=== PATIENT | female | born 1965 | race Caucasian/White ===

== ENCOUNTER 2020-08-26 02:55 | Outpatient (CLI) | payer OTHER, SELFPAY ==
--- NOTE | 2020-08-26 | DI.MAMMO_ITS ---
EXAM: MG MAMMO SCREENING CLINICAL HISTORY: SCREENING, Z12.31 TECHNIQUE: Bilateral full field digital CC and MLO mammographic images were obtained with 3D tomosyn thesis and utilizing computer aided detection (CAD). COMPARISON: Available for comparison. FINDINGS: Masses/Architectural Distortion: None seen. Microcalcifications: No suspicious pleomorphic-type are seen. Skin Thickening/Nipple Retraction: None. IMPRESSION: 1. No significant interval change with no specific features of malignancy noted. 2. Unless there is more urgent need, screening mammography is recommended, as per [employer] guidelines. BI-RADS Category 2 - Benign Findings Breast Density - Category C - Heterogeneously dense Breast density category C or D implies that the patient has dense breast tissue. Dense breast tissue is very common and is not abnormal but dense breast tissue can make it harder to find cancer on a ma mmogram. Also, dense breast tissue may increase their breast cancer risk. This information about the result of the mammogram report was provided to the patient to raise their awareness. Use this report when you speak with the patient about their risks for breast cancer, which includes their family hist ory. At that time, you may recommend for more screening tests (Ultrasound or MRI) as they might be us eful based on their risk. A negative radiographic report should not delay biopsy if a dominant or clinically suspicious mass is present. Up to ten percent of cancers are not identified on mammography. A negative report may reinforce clinical impression. Adenosis and dense breasts may obscure an underlying neoplasm. False positive reports average 6 to 10%. Patient will receive a letter notifying them of these results.
== END 2020-08-26 03:15 ==
PROVIDERS: PCP Family Medicine; Visit Provider Family Medicine
DX: Z12.31 Encounter for screening mammogram for malignant neoplasm of breast (principal)
CPT/HCPCS: 77063; 77067

== ENCOUNTER 2023-02-23 19:06 | Outpatient (CLI) | payer OTHER, SELFPAY ==
--- NOTE | 2023-02-23 | DI.RAD_ITS ---
Exam(s) XR TIB/FIB LT EXAM: XR TIB/FIB LT CLINICAL HISTORY: localized swelling on lower leg. TECHNIQUE: 2D digital imaging was performed. COMPARISON: No exams were available for comparison FINDINGS: Two views-AP and lateral. No evidence of fracture.. No radiopaque foreign body. Bone density normal. No osseous lesions. There is some symmetric abnormal streaking in the subcutaneous fat layer over the lateral aspect of t he calf. There is no radiopaque foreign body. No gas in the soft tissues. IMPRESSION: Soft tissues findings as above. No osseous findings. DATA REPOSITORY: RADIATION DOSE DELIVERED:
--- NOTE | 2023-02-23 19:50 | DI.VRAD_ITS ---
PROCEDURE INFORMATION: Exam: XR Left Tibia and Fibula Exam date and time: 02/23/2023 7:30 PM Age: 57 years old Clinical indication: Pain; Left; Patient HX: Localized swelling on lower leg TECHNIQUE: Imaging protocol: Radiologic exam of the left tibia and fibula. Views: 2 views. COMPARISON: No relevant prior studies available. FINDINGS: Bones/joints: Frontal and lateral views of the left foreleg and ankle reveal no acute fracture or dislocation Soft tissues: No cutaneous marker was placed at the site of the palpable abnormality. There is apparent soft tissue swelling along the lateral aspect of the mid foreleg. Within the limits of the exam, no radiopaque foreign body or obvious soft tissue gas is demonstrated. IMPRESSION: No acute fracture or dislocation seen in the left foreleg. Dictated and Authenticated by: Tyrell Mason MD. Ordering:ZARI ZHANG MD
== END 2023-02-23 19:26 ==
LOC: DI 19:08
PROVIDERS: PCP Family Medicine; Visit Provider Nurse Practitioner Family
DX: R22.40 Localized swelling, mass and lump, unspecified lower limb (principal)
CPT/HCPCS: 73590

== ENCOUNTER 2024-05-22 01:28 | Outpatient (CLI) | payer OTHER, SELFPAY ==
--- NOTE | 2024-05-22 | DI.MAMMO_ITS ---
Exam(s) MAMMO SCREENING EXAM: MAMMO SCREENING CLINICAL HISTORY: SCREENING FOR BREAST CA,Z07/25 TECHNIQUE: Mammograms were interpreted according to the usual protocol including computer analysis w [employer] CAD system, tomosynthesis and C-view imaging. COMPARISON: 2017 and 2020 FINDINGS: The breasts are composed of heterogeneously dense fibroglandular densities, Breast Density category C . No suspicious masses or suspicious microcalcifications are seen. No skin thickening or abnormal axillary lymph nodes are seen. There has been no significant change from prior exams. IMPRESSION: BI-RADS Category 1, Negative mammogram. Yearly screening mammography is recommended. Breast Density Category C, heterogeneously Dense. The mammogram demonstrates the patient's breast tissue is dense. Dense breast tissue is very common a nd is not abnormal but dense breast tissue can make it harder to find cancer on a mammogram. Also, de nse breast tissue may increase breast cancer risk. This information about the result of the mammogram report was provided to the patient to raise their awareness. Use this report when you speak with the patient about their risks for breast cancer, which includes their family history. At that time, you may recommend additional screening tests (Ultrasound or MRI) as they might be useful based on their r isk. A negative radiographic report should not delay biopsy if a dominant or clinically suspicious mass is present. Up to ten percent of cancers are not identified on mammography. A negative report may reinforce clinical impression. Adenosis and dense breasts may obscure an underlying neoplasm. False positive reports average 6 to 10%.
== END 2024-05-22 01:48 ==
LOC: DI 01:28
PROVIDERS: PCP Family Medicine; Visit Provider Family Medicine
DX: Z12.31 Encounter for screening mammogram for malignant neoplasm of breast (principal)
CPT/HCPCS: 77063; 77067

== ENCOUNTER 2024-10-23 07:43 | Day surgery (SDC) | payer OTHER, SELFPAY ==
[2024-10-23 08:30] VITALS: BP 136/73; PULSE 76; RESP 20; TEMP 36.5; O2SAT 98
[2024-10-23 09:29] VITALS: BMI 28.4
--- NOTE | 2024-10-23 09:29 | W.ANESPRE ---
General Info Date of Service Date Performed: 10/23/24 Height: 5 ft 6 in Weight: 80 kg Body Mass Index (BMI): 28.4 Surgical Procedure: Operation Date: 10/23/24 10:05 Proposed Procedure Side Surgeon p Colonoscopy Timothy Chacon MD Meds Allergies and Home Medications Allergies Allergy/AdvReac Type Severity Reaction Status Date / Time Penicillins Allergy Intermediate rash Verified 10/23/24 09:10 codeine AdvReac Intermediate crying and Verified 10/23/24 09:10 sleepy loratadine (From Claritin) AdvReac Intermediate mental Verified 10/23/24 09:10 changes & hyper Home Medication ?Medication ?Instructions ?Recorded bisacodyl 5 mg tablet,delayed 5 mg PO ONCE colonscopy bowel prep 10/12/24 release (Dulcolax (bisacodyl)) #4 tabs polyethylene glycol 3350 17 238 g PO ONCE colonoscopy prep 10/12/24 gram/dose oral powder #238 grams Current Visit Medications: Current Medications Generic Name Dose Route Start Last Admin Trade Name Michaelq PRN Reason Stop Dose Admin Ringer's Solution 1,000 mls @ 80 mls/hr 10/23/24 06:00 IV 10/23/24 23:59 INFUSION MARISA IV Miscellaneous Supplies 1 each 10/23/24 06:00 Iv Access IV 10/23/24 23:59 DIRECTED MARISA Sodium Chloride 0 ml 10/23/24 06:00 Normal Saline Flush 10 Ml Syr IV 10/23/24 23:59 PRN PRN Sodium Chloride 0 ml 10/23/24 06:00 Normal Saline 10 Ml Vial IJ 10/23/24 23:59 DIRECTED PRN Sterile Water 0 ml 10/23/24 06:00 Water,Injection,Sterile 10 Ml Vial IJ 10/23/24 23:59 DIRECTED PRN PFSH Medical History Medical History Hx of fracture of nose No pertinent past medical history Negative colorectal cancer screening using DNA-based stool test (~2020) Surgical History Surgical History History of mandibular surgery 2020 Jaw realignment Hx of hand surgery No pertinent past surgical history Tobacco Smoking/Tobacco Use Status: Never Passive smoking exposure: No Alcohol Alcohol Intake: current Alcohol intake frequency: a few times a week Alcohol type: beer Substance Use Substance use: Never Substance use type: does not use Vital Signs and Lab Results Vital Signs Most Recent Vital Signs in EMR: Most Recent Vital Signs Temp Pulse Resp BP Pulse Ox 36.5 C 76 20 136/73 98 10/23/24 08:30 10/23/24 08:30 10/23/24 08:30 10/23/24 08:30 10/23/24 08:30 Lab Results Blood Type / Crossmatch: No Data to Display Complete Blood Count: No Data to Display Complete Metabolic Panel: No Data to Display Liver Function Panel: No Data to Display Coagulation Panel: No Data to Display Cardiac Panel: No Data to Display Arterial Blood Gas: No Data to Display Venous Blood Gas: No Data to Display Pancreas Panel: No Data to Display Thyroid Panel: No Data to Display Infectious Disease: No Data to Display Blood Cultures: No Data to Display Toxicology Panel: No Data to Display Anesthesia Assessment and Plan Anesthesia History Personal History: Delayed Emergence Family History: No Family History of Anesthesia Complications Exercise Tolerance Exercise Tolerance: Metabolic Equivalents>4 Pertinent Negatives Pertinent Negatives: No Symptoms of GERD Cardiac & Pulmonary Exam Cardiac Exam: Normal S1/S2 Heart Sounds Pulmonary Exam: Clear Bilateral Breath Sounds Implantable Cardiac Device Does patient have a Pacemaker or an ICD?: No Airway Exam Known Difficult Airway: No Mallampati Class: 2 Mouth Opening: Normal (> 3cm) Thyromental Distance: Greater than 3 cm Neck Range of Motion: Full ROM Neck Circumference: Normal Teeth Condition: Normal Dentition ASA Classification ASA Score: ASA 2 Emergency Case?: No NPO Status NPO Status: NPO Clears >2 hours, Solids >8 hours Anesthesia Plan Resuscitation Status: Full Code Anesthesia Technique: General Anesthesia Airway Planned: Natural Airway Monitors Used: Standard Monitors
[2024-10-23] MEDS: Lactated Ringers 1,000 ML 80 ML IV (09:55)
--- NOTE | 2024-10-23 10:03 | W.PM.DSUDISC ---
Date of service: 10/23/24 Discharge Plan Disposition Patient Disposition: Home Condition: Good Discharge Details Attending Provider: Timothy Chacon Primary Care Provider: Flora Mccabe Home Meds and New Rx's Prescriptions: No Action polyethylene glycol 3350 17 gram/dose powder 238 g PO ONCE Qty: 238 0RF Rx Instructions: take per colonoscopy instructions bisacodyl [Dulcolax (bisacodyl)] 5 mg tablet,delayed release (DR/EC) 5 mg PO ONCE Qty: 4 0RF Rx Instructions: take per colonoscopy instructions Discharge Instructions Additional Instructions: FINDINGS: There were no concerning findings in your colon. No polyps. Certainly no cancer. You should repeat another colonoscopy in 10 years. Incidentally, some mild diverticular disease (diverticulosis) was seen in your colon. This is extremely common, benign and nothing needs to be done about it. Activity:: Activity as Tolerated Diet:: As Tolerated Discharge Orders Discharge Orders: Discharge Order (Routine); Ordered 10/23/24 Ordered By: Timothy Chacon
--- NOTE | 2024-10-23 10:04 | W.COLOREPORT ---
Date of service: 10/23/24 Time of Service: 10:04 Colonoscopy Report Procedure Description: Procedures performed: 1. Colonoscopy with cold forceps biopsies Preoperative diagnosis: Screening colonoscopy Postoperative diagnosis: Minimal/mild sigmoid diverticulosis Surgeon: Saúl Chacon MD Indication for procedure: The patient is a 59-year-old woman who was never had a screening colonoscopy before. No family history of colon cancer. She has no symptoms. Findings: Normal terminal ileum. No polyps anywhere. There are scattered diverticuli in the sigmoid colon. There was a tiny circumferential area about 2-3 cm in length, in the sigmoid colon, it had a mildly?inflamed appearance to it. It could represent SCAD potentially and so I biopsied it. It may simply be irritation from the colonoscopy prep. No obvious or significant hemorrhoid disease. Surveillance interval/follow-up: Repeat another colonoscopy in 10 years. Will review pathology results which may warrant postop follow-up and discussion if SCAD present. Specimens: Yes Estimated blood loss: Minimal Complications: None Quality of prep: Excellent Procedure in detail: The patient gave written consent and was in agreement with the indications, the potential risks as well as the benefits of the procedure. They were taken to the endoscopy suite and laid in the left lateral decubitus position. A timeout was performed and anesthesia was administered which was tolerated well. I started the procedure. Digital rectal and visual examination was performed and grossly within normal limits. A well-lubricated flexible colonoscope was then introduced and passed without any notable difficulty all the way to the cecum identified by the ileocecal valve and the appendiceal orifice. The terminal ileum was briefly intubated and looked normal visually. The scope was then slowly withdrawn with the above-noted findings. The patient tolerated the procedure well and was taken to the PACU in hemodynamically stable condition.
--- NOTE | 2024-10-23 10:24 | BOWEL_PTH ---
PATIENT: Charisse Caldera LOC: [facility] U#:[id number] AGE/SX: 59/F ROOM: RE10/23/[address]: Timothy Chacon : 1965 BED: DIS: 10/23/2024 SPEC #: [id number] RECD: 10/23/24 13:11 STATUS: RAY RE #: [id number] DEVIKA: 10/23/24 10:[address]: Timothy Chacon DEPT: Surgical Specimen RECD BY: Anna Reyes ENTERED: 10/23/24 13:14 SP TYPE: Bowel OTHR DR: Flora Mccabe Tissues: 1 - BIOPSY BOWEL Procedures: GROSS AND MICRO LEVEL 4 Comments: [id number]
[2024-10-23 10:31] VITALS: BP 106/67; PULSE 56; RESP 16; TEMP 36.1; O2SAT 99
--- NOTE | 2024-10-23 10:53 | W.ANESPOSTOP ---
Postoperative Evaluation Date, Time and Location Date Performed: 10/23/24 Time Performed: 10:53 Patient Location: Day Surgery Unit Vital Signs Most Recent Imported Vital Signs: Most Recent Vital Signs Temp Pulse Resp BP Pulse Ox 36.1 C L 56 L 16 106/67 99 10/23/24 10:31 10/23/24 10:31 10/23/24 10:31 10/23/24 10:31 10/23/24 10:31 Pain Score Most Recent Pain Score: Most Recent Pain Score Pain Level 0 10/23/24 08:30 Assessment Mental Status: Awake (Alert & Oriented to Patient Baseline) Airway and Respiratory Function: Patent airway with normal (patient baseline) respiratory exam Cardiovascular Function: Hemodynamically Stable Hydration Status: Adequately Hydrated Nausea & Vomiting: No Nausea or Vomiting Pain: Pt. Denies Any Pain Peripheral Nerve Block: Patient did not receive a nerve block
[2024-10-23 11:00] VITALS: BP 99/76; PULSE 58; RESP 18; TEMP 36.2; O2SAT 99
== END 2024-10-23 11:38 | disposition home or self-care (01) ==
PROVIDERS: PCP Family Medicine; Visit Provider Student in an Organized Health Care Education/Training Program
PROC: 0DJD8ZZ Inspection of Lower Intestinal Tract, Via Natural or Artificial Opening Endoscopic (ICD-10-PCS; CPT 45378; principal; 2024-10-23 10:00)
DX: Z12.11 Encounter for screening for malignant neoplasm of colon (principal); K57.30 Diverticulosis of large intestine without perforation or abscess without bleeding
CPT/HCPCS: 45380; 81025; 88305; J2704